=== PATIENT | female | born 1955 ===

== ENCOUNTER → 2019-02-21 12:59 | Outpatient (CLI) | payer MEDICAID, SELFPAY ==
--- NOTE | 2019-11-02 | DI.DEXA_ITS ---
EXAM: XR DEXA BONE DENSITY W/WO ELOISE INDICATION: SR testing. COMPARISON: No exams were available for comparison TECHNIQUE: Dual-Energy X-ray Absorptiometry (DXR) exam was performed following protocol FINDINGS: HIP LT/RT (NECK): Total area Total BMC Total BMD Total T-Score Total Total UT Total Z-Score Total AM T- and Z-scores: WRIST LT/RT (UD): Total area 10.88cm? Total BMC 5.96g Total BMD 0.55g/cm2 Total T-Score -0.6 Total UT 95Percent Total Z-Score 1 Total AM 111Percent T- and Z-scores: L-SPINE: Total area Total BMC Total BMD Total T-Score Total UT Total Z-Score Total AM T- and Z-scores: IMPRESSION:
--- NOTE | 2020-01-20 | DI.MAMMO_ITS ---
EXAM: MAMMO SCREENING CLINICAL HISTORY: testing result codes TECHNIQUE: Mammograms were interpreted according to the usual protocol including computer analysis w NoDays[employer] CAD system, tomosynthesis and 2D or C-view imaging. COMPARISON: FINDINGS: IMPRESSION: BI-RAD Category 6- Known biopsy Breast Density - Category a - Almost entirely fatty A negative radiographic report should not delay biopsy if a dominant or clinically suspicious mass is present. Up to ten percent of cancers are not identified on mammography. A negative report may reinforce clinical impression. Adenosis and dense breasts may obscure an underlying neoplasm. False positive reports average 6 to 10%. Patient will receive a letter notifying them of these results. The patient will receive a letter notifying them of these results.
[2020-11-20 11:14] LABS: ETHANOL BLOOD 10.1 mg/dL (<3)
== END ==
DX: R69 Illness, unspecified (principal)

== ENCOUNTER → 2019-07-13 12:45 | Outpatient (CLI) | payer MEDICAID, SELFPAY ==
--- NOTE | 2019-07-13 12:45 | RT.EKG_ITS ---
APPROVED REPORT Exam: Resting ECG HR:70 bpm ECG Measurements Heart Rate 70 AXES NM 115 P 21 QRSd 124 QRS 29 QT 369 T 37 QTc 399 <Conclusion> Sinus rhythm...normal P axis, V-rate 50- 99 Borderline short NM interval...NM int <120mS Nonspecific intraventricular conduction delay...QRSd >115mS, not LBBB/RBBB Baseline wander in lead(s) I,II,aVR,aVF,V2,V3,V4,V5,V6 The ED physician agrees with the ECG cart interpretation.
== END ==
DX: R69 Illness, unspecified (principal)
CPT/HCPCS: 93005; 93010

== ENCOUNTER 2021-05-22 09:55 | Outpatient (CLI) | payer MEDICARE, SELFPAY ==
[2021-06-19 14:44] LABS: Source Nasopharynx
[2021-06-19 16:19] LABS: COVID-19 PCR Negative (Negative)
== END 2021-05-22 09:56 | disposition home or self-care (01) ==
LOC: LBO 09:57

== ENCOUNTER → 2021-07-15 12:45 | Outpatient (CLI) | payer MEDICARE, SELFPAY ==
--- NOTE | 2021-09-06 | DI.US_ITS ---
Exam(s) US OB 2-3 TRIMESTER EXAM: US OB 2-3 TRIMESTER CLINICAL HISTORY: TEST TECHNIQUE: Ultrasound of both kidneys performed using standard protocol. COMPARISON: No exams were available for comparison FINDINGS: RIGHT KIDNEY: Measures cm in length. No cysts evident. Normal cortical thickness and corticomedullary differentiat ion .No solid masses No intrarenal calculi nor hydronephrosis. LEFT KIDNEY: Measures cm in length. No cysts evident. Normal cortical thickness and corticomedullary differentia ion. No solids masses. No intrarenal calculi nor hydonephrosis. URINARY BLADDER: Prevoid volume is cc Postvoid volume is cc No evidence of bladder mass nor diverticuli. Ureterovesical jets: Both identified and appear symmetrical IMPRESSION: 1. No significant ultrasound findings in the kidneys. 2. DATA REPOSITORY:

== ENCOUNTER → 2021-09-05 09:17 | Outpatient (CLI) | payer MEDICARE, SELFPAY ==
--- NOTE | 2021-09-11 | DI.US_ITS ---
Exam(s) US OB 2-3 TRIMESTER EXAM: US OB 2-3 TRIMESTER CLINICAL HISTORY: TEST. TECHNIQUE: Transabdominal obstetrical ultrasound was performed. COMPARISON: No exams were available for comparison FINDINGS: There is a single viable intrauterine gestation with cardiac activity identified- bpm. Amniotic fluid: There is a normal amount of amniotic fluid. Placental location: The placenta is anterior grade 1,with no evidence of placenta previa. ANATOMY: A 3 vessel umbilical cord is seen. A four-chamber cardiac view was obtained. Right and left ventricular outflow tracts were imaged. There are no obvious abnormalities of the spinal column evident. There is no obvious abnormal ity of the anterior abdominal wall. stomach and urinary bladder are identified and there is no evidence of hydronephrosis. No abnormalities of the upper lip region are identified. No evidence of choroid plexus cysts i n the brain. Dating parameters place this at approximately gestational age. BPD measures HC measures AC measures FL measures Estimated weight is gm - Fetus is at the percentile on the Hadlock scale. IMPRESSION:: Single viable intrauterine gestation which is approximately gestational age, implying an ANIL of . There are no obvious anomalies evident on today's study. The placenta is with no evidence of placenta previa. There is a normal amount of amniotic fluid. DATA REPOSITORY:

== ENCOUNTER 2021-11-07 09:32 | Outpatient (CLI) | payer MEDICARE, SELFPAY | END 2021-11-07 09:33 | disposition home or self-care (01) | LOC: LBO 09:32 | DX: R68.89 Other general symptoms and signs (principal) | CPT/HCPCS: 80184; 82043; 82570 ==

== ENCOUNTER 2024-11-14 07:40 | Outpatient (CLI) | payer MEDICARE, MEDICAID, SELFPAY | END 2024-11-14 07:41 | disposition home or self-care (01) | DX: C15.3 Malignant neoplasm of upper third of esophagus (principal) | CPT/HCPCS: 82378 ==